=== PATIENT | male | born 1985 | race Caucasian/White ===

== ENCOUNTER 2019-10-20 13:08 | Emergency (ER) | payer BC, OTHER ==
[2019-10-20 13:22] LABS: ABS Basophils 0.1 10^3/ul (0-0.2); ABS Eosinophils 0.4 10^3/ul (0-0.6); ABS Monocytes 1.1 10^3/ul (0-0.8); ABS Neutrophils 5.7 10^3/ul (1.5-7.7); Eosinophil % 3.9 %; Hematocrit 46 % (42-52); Hemoglobin 16.3 g/dL (14.0-18.0); Lymphocyte % 22.1 %; Mean Corpuscular HGB Conc 35 g/dL (31-36); Mean Corpuscular Hemoglobin 31 pg (27-31); Mean Corpuscular Volume 89 fL (80-94); Mean Platelet Volume 7.9 fL (7.4-10.4); Nucleated Red Blood Cells % 0.1; Platelet Count 238 10^3/uL (150-450); Red Cell Distribution Width 13 % (10-15); White Blood Count 9.2 10^3/uL (3.5-10.8)
[2019-10-20 13:40] LABS: Albumin 4.6 g/dL (3.2-5.2); Albumin/Globulin Ratio 1.4 (1-3); Calcium 9.5 mg/dL (8.6-10.3); EGFR African American 118.4 (>60); EGFR Non-African American 97.8 (>60); Globulin 3.4 g/dL (2-4); Total Bilirubin 0.3 mg/dL (0.2-1.0)
[2019-10-20 13:57] LABS: INR 0.97 (0.82-1.09)
[2019-10-20] MEDS ORDERED: Acetaminophen TAB* 325 MG PO ONE (15:01)
[2019-10-20] MEDS ORDERED: Aspirin 81 mg CHEW TAB* 81 MG TAB.CHEW PO ONE (16:48)
--- NOTE | 2019-10-20 17:57 | ED ---
HPI Chest Pain - HPI Summary HPI Summary: 34-year-old male presents with chest pain since this morning. He states that did radiate down his arm. He states that is located on bilateral sides of his chest. States it is sharp in nature. Denies abdominal pain. Admits to nausea but no vomiting. He states that he was little bit dizzy but that has since resolved. He checked his blood pressure at [facility] and it was only 180/100. has no medical conditions. States does have a family history of heart disease but no one with a heart attack. Did have a stroke at one point. He does smoke a cigar a day. Denies any drug use. no recent travel. No family history of blood clots. no pain or swelling in calf muscles. Has not been sick recently. No cough. Patient is unchanged when he takes a deep breath or with positional changes. He tired tyenlol and ibuprofen with minimal relief. - History of Current Complaint Chief Complaint: EDChestPainROMI Time Seen by Provider: 10/20/19 16:37 Pain Intensity: 7 - Allergy/Home Medications Allergies/Adverse Reactions: Allergies Allergy/AdvReac Type Severity Reaction Status Date / Time No Known Allergies Allergy Verified 12/05/15 17:38 Home Medications: Home Medications Amitriptyline TAB* [Elavil TAB*] 25 mg PO BEDTIME 10/20/19 [History Confirmed ] PMH/Surg Hx/FS Hx/Imm Hx Endocrine/Hematology History: Denies: Hx Diabetes Cardiovascular History: Denies: Hx Congestive Heart Failure, Hx Hypertension History: Denies: Hx Renal Disease Sensory History: Denies: Hx Contacts or Glasses, Hx Hearing Aid Opthamlomology History: Denies: Hx Contacts or Glasses - Surgical History Surgery Procedure, Year, and Place: UPPER JAW X 2 2009, 2011. RIGHT KNEE-2011 Hx Anesthesia Reactions: No - Immunization History Date of Tetanus Vaccine: Unk Date of Influenza Vaccine: None Infectious Disease History: Yes Infectious Disease History: Denies: Traveled Outside the [place] in Last 30 Days - Family History Known Family History: Positive: Non-Contributory - Social History Alcohol Use: None Substance Use Type: Reports: None Substance Use Comment - Amount & Last Used: E-cigarettes Smoking Status (MU): Former Smoker Amount Used/How Often: 1 PPD X 7 YEARS Have You Smoked in the Last Year: Yes Review of Systems Negative: Fever Positive: Chest Pain Negative: Shortness Of Breath, Cough All Other Systems Reviewed And Are Negative: Yes Physical Exam Triage Information Reviewed: Yes Vital Signs On Initial Exam: Initial Vitals Temp Pulse Resp BP Pulse Ox 97.9 F 90 18 167/92 98 10/20/19 13:22 10/20/19 13:22 10/20/19 13:22 10/20/19 13:22 10/20/19 13:22 Vital Signs Reviewed: Yes Appearance: Positive: Well-Appearing Skin: Positive: Warm, Dry Head/Face: Positive: Normal Head/Face Inspection Eyes: Positive: Normal, Conjunctiva Clear ENT: Positive: Pharynx normal Respiratory/Lung Sounds: Positive: Clear to Auscultation, Breath Sounds Present Cardiovascular: Positive: Normal, RRR Abdomen Description: Positive: Nontender, Soft Bowel Sounds: Positive: Present Musculoskeletal: Positive: Normal Neurological: Positive: Normal Psychiatric: Positive: Normal Procedures - Sedation Patient Received Moderate/Deep Sedation with Procedure: No Diagnostics - Vital Signs Vital Signs Temp Pulse Resp BP Pulse Ox 10/20/19 15:06 98.9 F 96 18 147/100 97 10/20/19 13:22 97.9 F 90 18 167/92 98 - Laboratory Lab Results: Lab Results 10/20/19 10/20/19 10/20/19 Range/Units 13:15 13:15 13:15 WBC 9.2 (3.5-10.8) 10^3/uL RBC 5.20 (4.18-5.48) 10^6 /uL Hgb 16.3 (14.0-18.0) g/dL Hct 46 (42-52) % MCV 89 (80-94) fL MCH 31 (27-31) pg MCHC 35 (31-36) g/dL RDW 13 (10-15) % Plt Count 238 (150-450) 10^3/uL MPV 7.9 (7.4-10.4) fL Neut % (Auto) 61.6 % Lymph % (Auto) 22.1 % Storey % (Auto) 11.5 % Eos % (Auto) 3.9 % Baso % (Auto) 0.9 % Absolute Neuts (auto) 5.7 (1.5-7.7) 10^3/ul Absolute Lymphs (auto) 2.0 (1.0-4.8) 10^3/ul Absolute Monos (auto) 1.1 H (0-0.8) 10^3/ul Absolute Eos (auto) 0.4 (0-0.6) 10^3/ul Absolute Basos (auto) 0.1 (0-0.2) 10^3/ul Absolute Nucleated RBC 0.0 10^3/ul Nucleated RBC % 0.1 INR (Anticoag Therapy) 0.97 (0.82-1.09) Sodium 138 (135-145) mmol/L Potassium 4.0 (3.5-5.0) mmol/L Chloride 105 (101-111) mmol/L Carbon Dioxide 27 (22-32) mmol/L Anion Gap 6 (2-11) mmol/L BUN 16 (6-24) mg/dL Creatinine 0.89 (0.67-1.17) mg/dL Est GFR ( Amer) 118.4 (>60) Est GFR (Non-Af Amer) 97.8 (>60) BUN/Creatinine Ratio 18.0 (8-20) Glucose 93 (70-100) mg/dL Calcium 9.5 (8.6-10.3) mg/dL Total Bilirubin 0.30 (0.2-1.0) mg/dL AST 27 (13-39) U/L ALT 56 H (7-52) U/L Alkaline Phosphatase 69 (34-104) U/L Troponin I 0.00 (<0.03) ng/mL Total Protein 8.0 (6.4-8.9) g/dL Albumin 4.6 (3.2-5.2) g/dL Globulin 3.4 (2-4) g/dL Albumin/Globulin Ratio 1.4 (1-3) Result Diagrams: 10/20/19 13:15 10/20/19 13:15 Lab Statement: Any lab studies that have been ordered have been reviewed, and results considered in the medical decision making process. - Radiology chest Radiology Interpretation Completed By: Radiologist Summary of Radiographic Findings: IMPRESSION: NO ACTIVE CARDIOPULMONARY DISEASE. - EKG No standard instances Cardiac Rate: NL EKG Rhythm: Sinus Rhythm EKG Comparison: No Significant Change Summary of EKG Findings: sinus rhythm Re-Evaluation - Re-Evaluation First Eval Re-Evaluation Time: 18:50 Comment: discussed results Chest Pain Course/Dx - Course Course Of Treatment: 34-year-old male presents with chest pain since this morning. He states that did radiate down his arm. He states that is located on bilateral sides of his chest. States it is sharp in nature. Denies abdominal pain. Admits to nausea but no vomiting. He states that he was little bit dizzy but that has since resolved. He checked his blood pressure at [facility] and it was only 180/100. has no medical conditions. States does have a family history of heart disease but no one with a heart attack. Did have a stroke at one point. He does smoke a cigar a day. Denies any drug use. no recent travel. No family history of blood clots. no pain or swelling in calf muscles. Has not been sick recently. No cough. Patient is unchanged when he takes a deep breath or with positional changes. He tired tyenlol and ibuprofen with minimal relief. On exam lungs clear to auscultation. Heart regular rhythm. Nontender chest wall. EKG shows a sinus rhythm. Troponins 2 is 0. Heart score 3. told follow-up with primary. Patient understands and agrees the plan. - Diagnoses Provider Diagnoses: Atypical chest pain Discharge ED - Sign-Out/Discharge Documenting (check all that apply): Patient Departure - Discharge Plan Condition: Good Disposition: HOME Patient Education Materials: Chest Pain (ED) Referrals: Jerod Ashton MD [Primary Care Provider] - Additional Instructions: Take ibuprofen or Tylenol every 6 hours as needed for pain Follow up with primary within 5 days Return to ED if develop any new or worsening symptoms - Billing Disposition and Condition Condition: GOOD Disposition: Home
[2019-10-20] MEDS ORDERED: Ketorolac INJ* 30 MG/ML 1 ML VIAL IM ONE (18:52)
[2019-10-20 19:27] VITALS: BP 124/64
== END 2019-10-20 19:20 | disposition home or self-care (01) ==
LOC: ED 13:08
DX: R07.89 Other chest pain (principal); Z87.891 Personal history of nicotine dependence; Z79.899 Other long term (current) drug therapy
CPT/HCPCS: 36415; 71046; 80053; 84484; 85025; 85610; 93005; 96372; 99283; A9270-GY; J1885